=== PATIENT | male | born 1950 | race Caucasian/White ===

== ENCOUNTER → 2019-02-19 | Outpatient (CLI) | payer MEDICARE | END | disposition home or self-care (01) | LOC: PCVCCLINIC 11:00 | PROVIDERS: ATTEND Internal Medicine | DX: I48.19 Other persistent atrial fibrillation (principal); I10 Essential (primary) hypertension; R94.31 Abnormal electrocardiogram [ECG] [EKG]; I25.10 Atherosclerotic heart disease of native coronary artery without angina pectoris; J45.909 Unspecified asthma, uncomplicated; E78.00 Pure hypercholesterolemia, unspecified; E66.9 Obesity, unspecified; Z82.49 Family history of ischemic heart disease and other diseases of the circulatory system; Z79.82 Long term (current) use of aspirin; Z79.899 Other long term (current) drug therapy; Z83.3 Family history of diabetes mellitus | CPT/HCPCS: 36415; 80061; 93005; G0463 ==

== ENCOUNTER → 2019-03-18 | Outpatient (CLI) | payer MEDICARE ==
--- NOTE | 2019-03-21 12:12 | PCVCIMAG ---
APPROVED REPORT Imaging Protocol: Rest Tc-99m/Stress Tc-99m 1 day Study performed: 03/18/2019 09:25:48 Indication: Atrial Fibrillation, CAD Patient Location: Out-Patient Stress Nurse: Annemarie Narayanan RN, Kristel Amato RN PR Tech:Leslie Hintonnicole [facility] Ht: 6 ft 2 in Wt: 230 lbs BSA: 2.31 m2 HR: 8 bpm BP: 174/84 mmHg BMI: 29.52 Rhythm: Atrial Fibrillation Medical History Medical History: HTN, CAD, High Ca Score, AFIB Medications: Irbesartan, Crestor, Diltiazem, Pradaxa, ASA Allergies: No known drug allergies Cardiac Risk Factors: Age Pretest Chest Pain Characteristics: No chest pain Exercise History: Physically active Resting Data Rest SPECT myocardial perfusion imaging was performed in supine position 45 minutes following the intravenous injection of 10.7 mCi of Tc-99m Sestamibi. Time of rest injection: 0845 Date: 03/18/2019 Administration Route: IV Administration Site: Right Hand Exercise Stress At peak stress, the patient was injected intravenously with mCi of Tc-99m Sestamibi. Time of stress injection: 1010 Date: 03/18/2019 Administration Route: IV Administration Site: Right Hand Patient continued to exercise for 1 minute(s). Gated Stress SPECT was performed 45 minutes after stress injection. The images were gated to evaluate regional wall motion and calculate left ventricular ejection fraction. Stress Test Details Stress Test: Exercise stress testing was performed using a Keven protocol. HRMax Heart Rate (APMHR): 151 bpm Resting HR: 86 bpmTarget HR (85% APMHR): 128 bpm Max HR Achieved: 173 bpm % of APMHR: 114 Recovery HR: 99 bpm BP Resting BP: 174/84 mmHg Max BP: 173/84 mmHg Recovery BP: 159/86 mmHg ECG Resting ECG: Atrial Fibrillation Stress ECG: Atrial Fibrillation, RVR Arrhythmia: PVCs Recovery ECG: Atrial Fibrillation Clinical Reason for Termination: Maximal effort, Fatigue Stress Symptoms: Dyspnea Exercise duration: 9 min 00 sec Exercise capacity: 10.10 METs Symptoms resolved during recovery. Stress ECG Conclusion 1. Subjectively negative for ischemia 2. Electrocardiographically negative for ischemia 3. Atrial fibrillation on the Rhythm 4. Satisfactory functional capacity Study Data Post stress, the left ventricular ejection was 52%.. SSS: 0 SRS: 0 SDS: 0 TID = 0.85. Perfusion There is a small area of mildly reduced uptake in the apical segment of the anteroseptal wall which is seen on the stress images and improves on the resting images. This area thickens and moves normally and is most consistent with attenuation artifact although small region of ischemia cannot be excluded. Wall Motion Normal left ventricular wall motion. Nuclear Conclusion ECG Findings: negative for ischemia Clinical Findings: negative for ischemia Nuclear Findings: negative for ischemia although mild ischemia cannot be excluded Exercise Capacity: normal Left Ventricular Function: normal 1. Low to intermediate risk study based on a small region of septal apical photopenia that may reduce first somewhat. Clinical correlation suggested 2. Post stress left ventricular ejection fraction 52% with normal contractility <Conclusion> 1. Subjectively negative for ischemia 2. Electrocardiographically negative for ischemia 3. Atrial fibrillation on the Rhythm 4. Satisfactory functional capacity
== END | disposition home or self-care (01) ==
LOC: PCVCIMAG 08:45
PROVIDERS: ATTEND Internal Medicine
DX: I48.0 Paroxysmal atrial fibrillation (principal); I25.10 Atherosclerotic heart disease of native coronary artery without angina pectoris; R93.1 Abnormal findings on diagnostic imaging of heart and coronary circulation; I10 Essential (primary) hypertension; E78.00 Pure hypercholesterolemia, unspecified
CPT/HCPCS: 78452; 93017; A9500

== ENCOUNTER → 2019-03-31 | Outpatient (CLI) | payer MEDICARE | END | disposition home or self-care (01) | LOC: PCVCCLINIC 10:15 | PROVIDERS: ATTEND Internal Medicine | DX: E78.5 Hyperlipidemia, unspecified (principal); I25.10 Atherosclerotic heart disease of native coronary artery without angina pectoris; I48.19 Other persistent atrial fibrillation | CPT/HCPCS: 36415 ==